=== PATIENT | male | born 1955 | race African-American/Black ===

== ENCOUNTER 2017-06-10 10:34 | Emergency (ER) | payer OTHER ==
[~2017-06-10] VITALS: Ht 180.3 cm; Wt 74.8 kg
[~2017-06-10 10:34] MED LIST: BACTRIM DS TAB1 EACH PO; COLACE100 MG PO; IBUPROFEN 800800 MG PO; NOHOMEMEDICATIONS; PERCOCET 5-3251 EACH PO
[2017-06-10 12:40] LABS: HEMATOCRIT 29.6 % (42.0-52.0); HEMOGLOBIN 10.2 gm/dL (14.0-18.0); MCH 28.4 pg (26.0-34.0); MCHC 34.4 g/dL (28.0-37.0); MCV 82.5 fL (80.0-100.0); RBC 3.59 mil/uL (4.50-6.00); RDW 14.5 % (10.5-14.5); WBC 5.5 thou/uL (4.0-11.0)
[2017-06-10 12:42] LABS: MANUAL DIFF YES
[2017-06-10 12:54] LABS: CALCIUM 8.7 mg/dL (8.5-10.1); CREATININE 1.6 mg/dL (0.7-1.3)
[2017-06-10 13:00] LABS: ALBUMIN 3.9 g/dL (3.4-5.0); TOTAL BILIRUBIN 0.8 mg/dL (<0.1-1.0)
[2017-06-10 13:11] LABS: ABSOLUTE NEUTROPHILS 1.9 thou/uL (1.4-8.2); ATYPICAL LYMPHS 2 %; PLATELET COUNT 44 thou/uL (150-400); PLATELET ESTIMATE DECREASED; TOTAL CELL COUNT 100
[2017-06-10] MEDS ORDERED: BACTRIM DS TAB1 EACH PO (13:18)
[2017-06-10] MEDS ORDERED: KEFLEX500 MG PO (13:18)
== END 2017-06-10 15:17 | disposition home or self-care (01) ==
LOC: ER 10:34
PROVIDERS: Physician Assistant
DX: L03.113 Cellulitis of right upper limb (principal); R60.0 Localized edema; Z85.72 Personal history of non-Hodgkin lymphomas